=== PATIENT | male | born 2005 | race Caucasian/White ===

== ENCOUNTER 2024-11-14 23:12 | Emergency (ER) | payer OTHER ==
[~2024-11-14] VITALS: Ht 180.3 cm; Wt 61.4 kg
[~2024-11-14 23:12] MED LIST: AMOXICILLIN AND1 TA2 PO; AUGMENTIN 875-1 EAC1 PO; IMIPRAMINE25 MG PO; INTUNIV4 MG PO; ZYRTEC10 M3 PO
[2024-11-14 23:21] VITALS: BP 124/78
== END 2024-11-14 23:56 | disposition home or self-care (01) ==
LOC: ED 23:12
DX: K02.9 Dental caries, unspecified (principal); K04.7 Periapical abscess without sinus